=== PATIENT | male | born 1945 | race Caucasian/White ===

== ENCOUNTER → 2017-11-06 | Day surgery (SDC) | payer MEDICARE ==
[2017-11-03 11:05] LABS: BASOPHILS % 0.5 % (0.0-1.0); EOSINOPHILS # (AUTO) 0.2 (0.0-0.4); EOSINOPHILS % 3.1 % (0.0-6.0); HEMATOCRIT 42.3 % (38.2-49.6); HEMOGLOBIN 14.5 g/dL (14.0-18.0); LYMPHOCYTES # (AUTO) 1.4 (1.0-3.2); LYMPHOCYTES % 25.4 % (18.0-39.1); MEAN CORPUSCULAR HEMOGLOBIN 31.3 pg (28-32); MEAN CORPUSCULAR HGB CONC 34.3 g/dL (31-35); MEAN CORPUSCULAR VOLUME 91.2 fL (81-99); MONOCYTES # (AUTO) 0.5 (0.2-0.8); MONOCYTES % 9.5 % (4.4-11.3); NEUTROPHILS # (AUTO) 3.4 (2.1-6.9); NEUTROPHILS % 61.1 % (38.7-80.0); PLATELET COUNT 210 x10e3/uL (140-360); RED BLOOD COUNT 4.64 x10e6/uL (4.3-5.7); RED CELL DISTRIBUTION WIDTH 12.4 % (11.7-14.4)
[~2017-11-06] MED LIST: ASPIRIN EC81 MG PO; ATORVASTATIN CA20 MG PO; BENAZEPRIL HCL20 MG PO; D3 PO; FENTANYL CITRATE/PF 100MCG/2 ML INJ ONE; FIBER PO; GLUCOSAMINE CH1 EAC1 PO; GLUCOSAMINE PO; HYOSCYAMINE SULFATE 0.5 MG/ML AMP ONE; LIDOCAINE HCL 2% LOCAL INJ 5 ML SDV VIAL INJ ONE; LOVASTATIN40 MG PO; MELATONIN10 M1 PO; MIDAZOLAM HCL 2 MG/2 ML VIAL ONE; MULTIVITAMIN PO; MULTIVITAMINS1 EAC7 PO; NIACIN500 M1 PO; PROPOFOL IV EMULSION 10 MG/ML 50 ML VIAL ONE
--- NOTE | 2017-11-06 09:58 | Operative Report ---
DATE OF PROCEDURE: November 06, 2017 REFERRING PHYSICIAN: Dr. Bebo Reyna PROCEDURE PERFORMED: Colonoscopy and polypectomy. INDICATIONS FOR COLONOSCOPY: Colorectal cancer screening and personal history of colon polyps. MEDICATION: Patient was done under MAC. Please see anesthesiologist's note. PROCEDURE: With the patient in the left lateral decubitus position, the flexible fiberoptic Olympus colonoscope was inserted into the rectum with ease and advanced all the way to the ileocolic anastomosis. Anastomosis appeared intact. There was no evidence of recurrence. The scope was then withdrawn slowly. One polyp was snared from the ascending colon. One polyp was snared and one polyp was hot biopsied from the transverse colon. Diverticular disease was noted to be scattered, but more prominent in the distal descending and the sigmoid colon. One polyp was hot biopsied from the sigmoid colon. One polyp was hot biopsied from the rectum. The scope was then retroflexed into the distal rectum and moderate size internal hemorrhoids were noted, none of which was actively bleeding. The scope was then straightened out. It was subsequently withdrawn. Patient tolerated the procedure well. IMPRESSION 1. Ileocolic anastomosis intact. 2. Transverse colon polyps times 2, one snared and one hot biopsied. 3. Diverticulosis. 4. Sigmoid colon polyp, hot biopsied. 5. Rectal polyp, hot biopsied. 6. Internal hemorrhoids, none actively bleeding. PLAN: Follow up histology. Initiate high-fiber and low-fat diet. Initiate high-fiber supplement. Patient will need a followup colonoscopy in 3 years. Job#: [id number] RI cc:BEBO REYNA MD
== END | disposition home or self-care (01) ==
LOC: OR 05:51
PROVIDERS: ATTEND Internal Medicine Gastroenterology
DX: Z12.11 Encounter for screening for malignant neoplasm of colon (principal); D12.3 Benign neoplasm of transverse colon; D12.5 Benign neoplasm of sigmoid colon; K62.1 Rectal polyp; Z98.0 Intestinal bypass and anastomosis status; K57.30 Diverticulosis of large intestine without perforation or abscess without bleeding; K64.8 Other hemorrhoids; I10 Essential (primary) hypertension; E78.5 Hyperlipidemia, unspecified; R00.1 Bradycardia, unspecified; Z01.810 Encounter for preprocedural cardiovascular examination; Z01.812 Encounter for preprocedural laboratory examination; Z79.82 Long term (current) use of aspirin; Z68.28 Body mass index [BMI] 28.0-28.9, adult
CPT/HCPCS: 36415; 45384; 45385; 85025; 88305; 93005; J1980; J2001; J2250; 45378

== ENCOUNTER 2018-03-08 19:08 | Observation (INO) | payer MEDICARE ==
[~2018-03-08] VITALS: Ht 177.8 cm; Wt 103.0 kg
[~2018-03-08 19:08] MED LIST changes: -FENTANYL CITRATE/PF 100MCG/2 ML INJ ONE; -HYOSCYAMINE SULFATE 0.5 MG/ML AMP ONE; -LIDOCAINE HCL 2% LOCAL INJ 5 ML SDV VIAL INJ ONE; -MIDAZOLAM HCL 2 MG/2 ML VIAL ONE; -PROPOFOL IV EMULSION 10 MG/ML 50 ML VIAL ONE
[2018-03-08] MEDS ORDERED: ASPIRIN 81 MG CHEW TAB PO ONE (19:45)
[2018-03-08 19:52] LABS: BASOPHILS # (AUTO) 0.1 (0.0-0.1); BASOPHILS % 0.6 % (0.0-1.0); EOSINOPHILS # (AUTO) 0.2 (0.0-0.4); EOSINOPHILS % 2.6 % (0.0-6.0); HEMATOCRIT 42.6 % (38.2-49.6); HEMOGLOBIN 14.7 g/dL (14.0-18.0); LYMPHOCYTES # (AUTO) 1.6 (1.0-3.2); LYMPHOCYTES % 20.3 % (18.0-39.1); MEAN CORPUSCULAR HEMOGLOBIN 31.5 pg (28-32); MEAN CORPUSCULAR HGB CONC 34.5 g/dL (31-35); MEAN CORPUSCULAR VOLUME 91.2 fL (81-99); MONOCYTES # (AUTO) 0.7 (0.2-0.8); MONOCYTES % 9.2 % (4.4-11.3); NEUTROPHILS # (AUTO) 5.3 (2.1-6.9); PLATELET COUNT 241 x10e3/uL (140-360); RED BLOOD COUNT 4.67 x10e6/uL (4.3-5.7); RED CELL DISTRIBUTION WIDTH 12.4 % (11.7-14.4)
[2018-03-08] MEDS ORDERED: ASPIRIN81 MG PO (19:52)
[2018-03-08 19:57] LABS: CLARITY,URINE CLEAR (CLEAR); COLOR,URINE YELLOW (YELLOW); LEUKOCYTE ESTERASE ,URINE NEGATIVE (NEGATIVE); NITRITE,URINE NEGATIVE (NEGATIVE)
[2018-03-08 19:58] LABS: BILIRUBIN,URINE NEGATIVE (NEGATIVE); KETONES,URINE NEGATIVE (NEGATIVE); PROTEIN,URINE DIPSTICK NEGATIVE (NEGATIVE); URINE UROBILINOGEN 0.2 mg/dL (0.2 - 1)
[2018-03-08] MEDS ORDERED: SODIUM CHLORIDE FLUSH 10 ML SYR INJ PRN ×2 (20:00→21:15)
[2018-03-08] MEDS ORDERED: ONDANSETRON HCL INJ 2 MG/ML VIAL IV PRN ×2 (20:00→21:15)
[2018-03-08 20:01] LABS: EPITHELIAL CELLS,URINE RARE /LPF; RBC,URINE 0-5 /HPF (0-5); WBC,URINE (MAN) 0-5 /HPF (0-5)
[2018-03-08 20:05] LABS: ALANINE AMINOTRANSFERASE 16 IU/L (0-55); ALBUMIN 4.1 g/dL (3.5-5.0); ALBUMIN/GLOBULIN RATIO 1.4 (0.8-2.0); ALKALINE PHOSPHATASE 64 IU/L (40-150); ANION GAP 13.7 mmol/L (8-16); BLOOD UREA NITROGEN 16 mg/dL (7-26); BUN/CREATININE RATIO 17 (6-25); CALCIUM 9.1 mg/dL (8.4-10.2); CARBON DIOXIDE 22 mmol/L (22-29); CHLORIDE 106 mmol/L (98-107); CREATINE KINASE 245 IU/L (30-200); CREATININE, SERUM 0.95 mg/dL (0.72-1.25); EST GLOMERULAR FILTRATION RATE > 60 ML/MIN (60-); GLUCOSE 104 mg/dL (74-118); POTASSIUM 3.7 mmol/L (3.5-5.1); SODIUM 138 mmol/L (136-145)
[2018-03-08] MEDS ORDERED: CEFTRIAXONE SOD 1 GM VIAL IV SCH (20:30)
--- NOTE | 2018-03-08 20:41 | Diagnostic Imaging Report ---
CHEST SINGLE (PORTABLE), 03/08/2018 7:36 PM Technique: CHEST SINGLE (PORTABLE) Comparison: None available. Clinical history: Chest pain Findings: Normal cardiomediastinal silhouette for portable technique. No consolidation or edema. No pleural effusion or pneumothorax. Right clavicle ORIF is noted. Impression: 1. Lines/Tubes: None 2. No acute abnormality. Signed by: Dr Phoebe Malik MD on 03/08/2018 8:38 PM
[2018-03-08] MEDS ORDERED: ENOXAPARIN INJ 80 MG/0.8 ML SYR SC STA (20:42)
[2018-03-08] MEDS ORDERED: CLOPIDOGREL BISULFATE 75 MG TAB PO ONE (20:45)
[2018-03-08] MEDS ORDERED: NITROGLYCERIN 0.4 MG SUBL SL PRN (21:15)
[2018-03-08] MEDS ORDERED: MORPHINE SULFATE 2 MG/ML SYR IV PRN (21:15)
--- OUTSIDE RECORDS SUMMARY | 2018-03-08 21:16 | XMS REPORT ---
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 Allergies, Adverse Reactions, Alerts This patient has no known allergies or adverse reactions. Medications This patient has no known medications. Results Test Description Test Time Test Comments Text Results Atomic Results Result Comments CHEST SINGLE (PORTABLE) 2018-03-08 20:35:00 [place] [id number] Patient Name: MICHAEL STANLEY MR #: [id number] : 1945 Age/Sex: 72/M Req #: [id number] Adm Physician: Ordered by: KELLY BROOKS MD Report #: [id number] Location: ER Room/Bed: Procedure: [id number] DX/CHEST SINGLE (PORTABLE) Exam Date: 03/08/18 Exam Time: 2004 REPORT STATUS: Signed CHEST SINGLE (PORTABLE), 03/08/2018 7:36 PM Technique: CHEST SINGLE (PORTABLE) Comparison: None available. Clinical history: Chest pain Findings: Normal cardiomediastinal silhouette for portable technique. No consolidation or edema. No pleural effusion or pneumothorax. Right clavicle ORIF is noted. Impression: 1. Lines/Tubes: None 2. No acute abnormality. Signed by: Dr Monroe Malik MD on 03/08/2018 8:38 PM Dictated By: MONROE MALIK MD 37 Transcribed By: SANIA on 03/08/182037 COPY TO: KELLY BROOKS MD
[2018-03-08] MEDS: FAMOTIDINE 20 MG/2 ML VIAL IV SCH (21:43)
[2018-03-08 22:49] VITALS: BP 144/76
[2018-03-08 23:10] VITALS: BP 144/76
[2018-03-08 23:14] VITALS: BP 144/76
[2018-03-08] MEDS ORDERED: PNEUMOCOCCAL VACCINE POLYVALENT 23 MCG/0.5 ML VIAL IM ONE (23:30)
[2018-03-08] MEDS ORDERED: INFLUENZA VIRUS VAC SPLIT INJ 0.5 ML SYR IM ONE (23:30)
[2018-03-09] VITALS (16 sets, daily range): BP systolic 119–153; BP diastolic 49–79
[2018-03-09 03:28] LABS: BASOPHILS % 0.4 % (0.0-1.0); EOSINOPHILS # (AUTO) 0.2 (0.0-0.4); EOSINOPHILS % 2.3 % (0.0-6.0); HEMATOCRIT 39.5 % (38.2-49.6); HEMOGLOBIN 13.8 g/dL (14.0-18.0); LYMPHOCYTES # (AUTO) 1.9 (1.0-3.2); LYMPHOCYTES % 27.5 % (18.0-39.1); MEAN CORPUSCULAR HEMOGLOBIN 31.7 pg (28-32); MEAN CORPUSCULAR HGB CONC 34.9 g/dL (31-35); MEAN CORPUSCULAR VOLUME 90.6 fL (81-99); MONOCYTES # (AUTO) 0.5 (0.2-0.8); MONOCYTES % 6.9 % (4.4-11.3); NEUTROPHILS # (AUTO) 4.3 (2.1-6.9); NEUTROPHILS % 62.8 % (38.7-80.0); RED BLOOD COUNT 4.36 x10e6/uL (4.3-5.7); RED CELL DISTRIBUTION WIDTH 12.4 % (11.7-14.4)
[2018-03-09 03:35] LABS: PLATELET COUNT 204 x10e3/uL (140-360)
[2018-03-09 03:48] LABS: ALANINE AMINOTRANSFERASE 15 IU/L (0-55); ALBUMIN 3.6 g/dL (3.5-5.0); ALBUMIN/GLOBULIN RATIO 1.3 (0.8-2.0); ALKALINE PHOSPHATASE 56 IU/L (40-150); ANION GAP 10.8 mmol/L (8-16); BLOOD UREA NITROGEN 13 mg/dL (7-26); BUN/CREATININE RATIO 16 (6-25); CARBON DIOXIDE 24 mmol/L (22-29); CHLORIDE 107 mmol/L (98-107); CHOL/HDL RATIO 3.7 (3.9-4.7); CHOLESTEROL 117 MD/DL (0-199); EST GLOMERULAR FILTRATION RATE > 60 ML/MIN (60-); GLUCOSE 105 mg/dL (74-118); HDL CHOLESTEROL 32 MG/DL (40-60); LDL CHOLESTEROL 68 MG/DL (60-130); POTASSIUM 3.8 mmol/L (3.5-5.1); SODIUM 138 mmol/L (136-145); TRIGLYCERIDES 86 MG/DL (0-149)
[2018-03-09 03:53] LABS: CREATINE KINASE 164 IU/L (30-200)
[2018-03-09] MEDS: FAMOTIDINE 20 MG/2 ML VIAL IV SCH ×2 (08:34→22:03)
[2018-03-09] MEDS ORDERED: ASPIRIN 81 MG ENTERIC COATED PO SCH (09:00)
[2018-03-09] MEDS ORDERED: SODIUM CHLORIDE 0.9% 1000ML 1,000 ML IV SCH (09:10)
[2018-03-09] MEDS ORDERED: IOPAMIDOL 370 MG/ML 200 ML INFUS..BTL INJ ONE ×2 (09:15→10:11)
[2018-03-09] MEDS ORDERED: HEPARIN SOD/SOD CHLORIDE 2,000 ML ONE (09:15)
[2018-03-09] MEDS ORDERED: LIDOCAINE HCL 1% LOCAL INJ 20 ML VIAL ONE (09:15)
[2018-03-09] MEDS ORDERED: SODIUM CHLORIDE 0.9% 1000ML 1,000 ML ONE (09:18)
[2018-03-09] MEDS ORDERED: MIDAZOLAM HCL 2 MG/2 ML VIAL ONE (09:18)
[2018-03-09] MEDS ORDERED: FENTANYL CITRATE/PF 100MCG/2 ML INJ ONE (09:18)
[2018-03-09] MEDS ORDERED: HEPARIN SOD (PORCINE) 1000 UNIT/ML 30ML ONE (10:09)
[2018-03-09] MEDS ORDERED: NITROGLYCERIN/D5W 200 MCG/ML 250 ML ONE (10:09)
[2018-03-09] MEDS ORDERED: SODIUM CHLORIDE 0.9% 50ML 50 ML ONE (10:13)
[2018-03-09] MEDS ORDERED: BIVALRIUDIN 250 MG/VIAL VIAL IV ONE (10:13)
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
[2018-03-09] MEDS ORDERED: CLOPIDOGREL BISULFATE 75 MG TAB ONE (10:30)
[2018-03-09] MEDS ORDERED: MORPHINE SULFATE INJ 4 MG/ML INJ IV PRN (11:15)
[2018-03-09] MEDS ORDERED: ONDANSETRON HCL INJ 2 MG/ML VIAL IV PRN (11:15)
[2018-03-09 11:31] LABS: CREATINE KINASE 150 IU/L (30-200)
[2018-03-09] MEDS: SODIUM CHLORIDE 0.9% 1000ML 1,000 ML IV SCH ×2 (11:47→21:03)
--- NOTE | 2018-03-09 14:19 | Operative Report ---
DATE OF PROCEDURE: March 09, 2018 PROCEDURES PERFORMED 1. Left heart cardiac catheterization with coronary angiography. 2. Left ventriculography. 3. Percutaneous coronary intervention with drug-eluting stent placement to a large ramus intermedius branch. 4. Angio-Seal closure of the right common femoral arteriotomy. INDICATIONS FOR PROCEDURE: A 72-year-old gentleman with history of hypertension, hyperlipidemia who has developed a new-onset escalating substernal chest pain, pressure sensation that began 3 days ago with exertion, now on the day of visit having low level of chest discomfort at rest. Due to high pretest probability and lack of clear-cut alternative diagnosis, we decided to proceed with urgent cardiac catheterization as he was deemed unfit and unstable for a conventional stress test. DESCRIPTION OF PROCEDURE: After risks, benefits, pros, and cons of today's procedure were explained, patient agreed to proceed. The patient was brought to the cardiac catheterization laboratory where the right groin was prepped and draped in usual sterile fashion. A 1% lidocaine solution was used to numb the right groin region. Access to the right femoral artery was obtained, and a 4-Honduran femoral sheath was placed. Selective coronary angiography of the [place] left coronary artery was performed with JL5 and 3DRC diagnostic catheters respectively. Angled pigtail catheter was placed in left ventricle for ventriculography and hemodynamic assessment of ventricular filling pressures. Patient was found to have a 95% ostial large bifurcating ramus intermedius branch stenosis. This supplies predominately his entire anterolateral wall with haziness and clearly the culprit lesion. We decided to proceed with intervention. The 4-Honduran femoral sheath was upsized to a 6-Honduran femoral sheath. We took a 6-Honduran XB 3.5 guiding catheter and selected the left main coronary ostia. Utilizing a 180 cm, 0.014 Runthrough wire, we crossed into the distal ramus intermedius vessel. We then took a Resolute Yonathan 2.25 x 15 mm drug-eluting stent and under very great care and multiple angulations, we precisely placed the stent at the ostium of the ramus intermedius branch without any impingement into the LAD or circumflex or left main coronary artery. The stent was deployed up to 12 atmospheres of pressure, which resulted in improvement in flow from VIJAYA-2 to VIJAYA-3 and 0% residual stenosis. We decided to do one more post-dilatation at 14 atmospheres of pressure for 30 seconds. Final angiography revealed 0% residual stenosis, VIJAYA-3 flow, and no complications. At the conclusion of the case, femoral angiogram was performed revealing femoral artery stick and a 6-Honduran Angio-Seal VIP closure device was successfully deployed achieving hemostasis. COMPLICATIONS: None. ESTIMATED BLOOD LOSS: Minimal. FINDINGS 1. The left main is angiographically normal and gives rise to LAD, ramus intermedius, and circumflex branch. 2. The LAD and its branches with mild luminal irregularities. 3. The ramus intermedius is a large bifurcating vessel with 95% ostial hazy stenosis. This is the clear-cut culprit artery. There is a large branch coming out from this vessel and is with bifurcation, [place] 1, 0, 0 lesion. 4. The left circumflex artery has a 40% mid stenosis and basically terminates into a mid branch of diffuse disease. 5. The RCA is dominant and gives rise to a right PDA and right PLV branch with 30% mid RCA stenosis. 6. The left ventricular ejection fraction is 55% with end-diastolic pressure of 16 mmHg. There is no significant LV to aortic pullback gradient. INTERVENTION SUMMARY: Successful treatment of the 95% thrombotic ostial ramus intermedius vessel branch with implantation of a Resolute Rewey 2.25 x 15 mm drug-eluting stent up to atmospheres of pressure, resulting in 0% residual stenosis, improvement in flow from VIJAYA-2 to VIJAYA-3, and no complications. PLAN/RECOMMENDATIONS 1. Aspirin and Plavix therapy. 2. Statin therapy. 3. Risk factor modification and medical therapy. 4. Four-hour bed rest post PCI today. 5. Overnight observation. Job#: [id number] ARTIS
[2018-03-09] MEDS: METOPROLOL TARTRATE 25 MG TAB PO SCH (17:05)
[2018-03-09] MEDS ORDERED: ATORVASTATIN 20 MG TAB PO SCH (21:00)
[2018-03-09] MEDS ORDERED: NON-FORMULARY MEDICATION (Benazepril Hcl 20 MG) PO SCH (21:00)
[2018-03-09] MEDS ORDERED: LISINOPRIL 20 MG TAB PO SCH (21:00)
[2018-03-10 00:12] VITALS: BP 132/71
[2018-03-10 01:38] VITALS: BP 132/71
[2018-03-10 05:03] VITALS: BP 114/68
[2018-03-10 05:50] LABS: BASOPHILS % 0.6 % (0.0-1.0); EOSINOPHILS # (AUTO) 0.2 (0.0-0.4); EOSINOPHILS % 2.8 % (0.0-6.0); HEMATOCRIT 40.6 % (38.2-49.6); HEMOGLOBIN 13.7 g/dL (14.0-18.0); LYMPHOCYTES # (AUTO) 1.4 (1.0-3.2); LYMPHOCYTES % 21.3 % (18.0-39.1); MEAN CORPUSCULAR HEMOGLOBIN 31.4 pg (28-32); MEAN CORPUSCULAR HGB CONC 33.7 g/dL (31-35); MEAN CORPUSCULAR VOLUME 92.9 fL (81-99); MONOCYTES # (AUTO) 0.6 (0.2-0.8); MONOCYTES % 9.5 % (4.4-11.3); NEUTROPHILS # (AUTO) 4.4 (2.1-6.9); NEUTROPHILS % 65.5 % (38.7-80.0); PLATELET COUNT 205 x10e3/uL (140-360); RED BLOOD COUNT 4.37 x10e6/uL (4.3-5.7); RED CELL DISTRIBUTION WIDTH 12.3 % (11.7-14.4)
[2018-03-10 06:06] LABS: ALANINE AMINOTRANSFERASE 13 IU/L (0-55); ALBUMIN 3.6 g/dL (3.5-5.0); ALBUMIN/GLOBULIN RATIO 1.4 (0.8-2.0); ALKALINE PHOSPHATASE 54 IU/L (40-150); ANION GAP 12.6 mmol/L (8-16); BLOOD UREA NITROGEN 11 mg/dL (7-26); BUN/CREATININE RATIO 13 (6-25); CALCIUM 8.7 mg/dL (8.4-10.2); CARBON DIOXIDE 25 mmol/L (22-29); CHLORIDE 106 mmol/L (98-107); CREATININE, SERUM 0.88 mg/dL (0.72-1.25); EST GLOMERULAR FILTRATION RATE > 60 ML/MIN (60-); GLUCOSE 98 mg/dL (74-118); POTASSIUM 4.6 mmol/L (3.5-5.1); SODIUM 139 mmol/L (136-145)
[2018-03-10 07:00] VITALS: BP 114/68
[2018-03-10] MEDS: SODIUM CHLORIDE 0.9% 1000ML 1,000 ML IV SCH (07:03)
[2018-03-10 08:27] VITALS: BP 121/71
[2018-03-10] MEDS ORDERED: INFLUENZA VIRUS VAC SPLIT INJ 0.5 ML SYR IM ONE (09:00)
[2018-03-10] MEDS ORDERED: CLOPIDOGREL BISULFATE 75 MG TAB PO SCH (09:00)
[2018-03-10] MEDS ORDERED: ASPIRIN 325 MG TAB PO SCH (09:00)
[2018-03-10] MEDS: FAMOTIDINE 20 MG/2 ML VIAL IV SCH (09:48)
[2018-03-10] MEDS: METOPROLOL TARTRATE 25 MG TAB PO SCH (09:48)
[2018-03-10] MEDS ORDERED: PLAVIX75 MG PO (11:08)
[2018-03-10] MEDS ORDERED: METOPROLOL TART25 MG PO (11:09)
[2018-03-10 11:57] VITALS: BP 130/70
--- NOTE | 2018-04-08 01:47 | Discharge Summary ---
CHIEF COMPLAINT: Chest pain. FINAL DIAGNOSES 1. Chest pain. 2. Hypertension. 3. Hyperlipidemia. 4. Coronary artery disease. PROCEDURES: Cardiac cath with intervention per Dr. Brown. DISPOSITION: Home. A 72-year-old male, known history of hypertension, hyperlipidemia, brought to the ER with a several-hour history of right chest pain described as pressure gets worse with exertion. Has had shortness of breath. No cough. No fever or chills. Further review and evaluation was conducted in the emergency room. Admitted to facility for evaluation of the chest pain, rule out ischemia, essential systolic hypertension, hyperlipidemia. Will be requesting a cardiology follow, request cardiac enzymes. From the ER, patient was in IMCU, resting comfortably, was in no acute distress. Was receiving IV fluids. Was receiving nitroglycerin 0.4 mg q.5 minutes x3. Daily medications were continuing as well, was receiving morphine sulfate for pain control. Laboratory studies revealing stable chemistries. Kidney functions stable. Glucose 98. CBC stable. Patient was taken to the supervisor labor gang by Dr. Brown. The patient underwent catheterization. Found to have an involved ramus. PCI was conducted at this vessel. Patient tolerated the procedure well. Post procedure, patient was cleared for discharge and was released home on 03/10/2018 in stable condition. EKGs are showing normal sinus rhythm. Cannot rule out anterior infarct age undetermined. Following up with echocardiogram revealing ejection fraction of 50% to 60%. No evidence of pericardial effusion. In the supervisor labor gang, patient was noted to have a 95% occlusion in the ramus and the patient underwent placement of Resolute Yonathan 2.25-mm x 15-mm stent. Reduced the restriction from 95 to 0. Patient will be on the medications post procedure i.e. aspirin, Plavix, and statins. Patient was able to be home once recovered from the procedure. With discharge, patient will be on a cardiac diet. No equipment or supplies necessary. Drains or Alejandro as needed. Activity level as directed by Dr. Brown. Was given a flu vaccine before being discharged. Was given a prescription for 1. Plavix 75 mg 1 tablet p.o. daily. 2. Lipitor 20 mg 1 tablet p.o. daily. 3. Metoprolol 12.5 mg 1 tablet p.o. b.i.d. 4. Lisinopril 20 mg 1 tablet p.o. daily. 5. Will also be on aspirin 81 mg daily. 6. Benazepril 20 mg at bedtime. 7. Glucosamine chondroitin 1 tablet at bedtime. 8. Melatonin 2 mg nightly for insomnia. 9. Multivitamin 1 tablet at bedtime. Will be following back up with Dr. Brown in 1 to 2 weeks. Returning to PCP within 7 to 10 days. Patient will be contacting cardiology sooner if any chest pain or shortness of breath were to develop. Dictated By: FADIA Puente Job#: [id number] CQ
== END 2018-03-10 12:45 | disposition home or self-care (01) ==
LOC: ER 19:08 → ERHOLD 21:13 → IMCU 22:38
DX: I25.110 Atherosclerotic heart disease of native coronary artery with unstable angina pectoris (principal); I10 Essential (primary) hypertension; E78.5 Hyperlipidemia, unspecified; E78.00 Pure hypercholesterolemia, unspecified; Z87.891 Personal history of nicotine dependence; Z82.49 Family history of ischemic heart disease and other diseases of the circulatory system; Z79.82 Long term (current) use of aspirin; Z79.02 Long term (current) use of antithrombotics/antiplatelets
CPT/HCPCS: 93458; C9600; 36415; 71045; 80053; 80061; 81001; 82550; 82553; 84484; 85025; 92928; 93005; 93306; 99284; C1766; C1874; G0378; J0583; J1644; J1650; J2001; J2250; J7030; Q9967

== ENCOUNTER → 2021-02-14 | Day surgery (SDC) | payer MEDICARE ==
[2021-02-12 11:38] LABS: BASOPHILS % 0.5 % (0.0-1.0); EOSINOPHILS # (AUTO) 0.1 (0.0-0.4); EOSINOPHILS % 1.7 % (0.0-6.0); HEMATOCRIT 44.6 % (38.2-49.6); HEMOGLOBIN 14.8 g/dL (14.0-18.0); LYMPHOCYTES # (AUTO) 1.1 (1.0-3.2); LYMPHOCYTES % 18.7 % (18.0-39.1); MEAN CORPUSCULAR HEMOGLOBIN 30.9 pg (28-32); MEAN CORPUSCULAR HGB CONC 33.2 g/dL (31-35); MEAN CORPUSCULAR VOLUME 93.1 fL (81-99); MONOCYTES # (AUTO) 0.6 (0.2-0.8); MONOCYTES % 10.4 % (4.4-11.3); NEUTROPHILS % 68.5 % (38.7-80.0); PLATELET COUNT 224 x10e3/uL (140-360); RED BLOOD COUNT 4.79 x10e6/uL (4.3-5.7); RED CELL DISTRIBUTION WIDTH 12.3 % (11.7-14.4)
[~2021-02-14] MED LIST changes: +ASPIRIN81 MG PO; +GLUCOSAMINE &1 EACH PO; +METOPROLOL TART25 MG PO; +PLAVIX75 MG PO
[2021-02-14 13:00] VITALS: BP 116/75
== END | disposition home or self-care (01) ==
LOC: OR 09:33
PROVIDERS: ATTEND Internal Medicine Gastroenterology
DX: Z09 Encounter for follow-up examination after completed treatment for conditions other than malignant neoplasm (principal); D12.2 Benign neoplasm of ascending colon; D12.4 Benign neoplasm of descending colon; Z98.0 Intestinal bypass and anastomosis status; K57.30 Diverticulosis of large intestine without perforation or abscess without bleeding; K64.8 Other hemorrhoids; I25.10 Atherosclerotic heart disease of native coronary artery without angina pectoris; E78.5 Hyperlipidemia, unspecified; I10 Essential (primary) hypertension; Z01.810 Encounter for preprocedural cardiovascular examination; Z01.812 Encounter for preprocedural laboratory examination; Z20.822 Contact with and (suspected) exposure to COVID-19; Z79.02 Long term (current) use of antithrombotics/antiplatelets; Z79.82 Long term (current) use of aspirin; Z68.27 Body mass index [BMI] 27.0-27.9, adult; Z95.5 Presence of coronary angioplasty implant and graft; Z87.891 Personal history of nicotine dependence
CPT/HCPCS: 36415; 45384; 45385; 85025; 88305; 93005; U0002

== ENCOUNTER 2022-03-01 13:43 | Emergency (ER) | payer MEDICARE, OTHER ==
[~2022-03-01] VITALS: Ht 177.8 cm; Wt 103.0 kg
[2022-03-01] MEDS ORDERED: TETANUS/DIPHTHERIA TOX ADULT 0.5 ML SYR IM ONE (15:00)
[2022-03-01 16:54] VITALS: BP 129/82
== END 2022-03-01 16:56 | disposition home or self-care (01) ==
LOC: ER 14:01
DX: S40.012A Contusion of left shoulder, initial encounter (principal); S00.83XA Contusion of other part of head, initial encounter; S80.02XA Contusion of left knee, initial encounter; V19.3XXA Pedal cyclist (driver) (passenger) injured in unspecified nontraffic accident, initial encounter; Y93.55 Activity, bike riding; Y92.89 Other specified places as the place of occurrence of the external cause; I10 Essential (primary) hypertension; E78.5 Hyperlipidemia, unspecified; Z98.0 Intestinal bypass and anastomosis status
CPT/HCPCS: 70450; 90471; 90714; 99283

== ENCOUNTER → 2024-02-06 | Day surgery (SDC) | payer MEDICARE ==
[2024-02-02 11:26] LABS: BASOPHILS % 0.6 % (0.0-1.0); EOSINOPHILS # (AUTO) 0.2 (0.0-0.4); EOSINOPHILS % 2.9 % (0.0-6.0); HEMATOCRIT 42.3 % (38.2-49.6); HEMOGLOBIN 13.8 g/dL (14.0-18.0); LYMPHOCYTES # (AUTO) 1.2 (1.0-3.2); LYMPHOCYTES % 18.7 % (18.0-39.1); MEAN CORPUSCULAR HEMOGLOBIN 31.8 pg (28-32); MEAN CORPUSCULAR HGB CONC 32.6 g/dL (31-35); MEAN CORPUSCULAR VOLUME 97.5 fL (81-99); MONOCYTES # (AUTO) 0.7 (0.2-0.8); MONOCYTES % 9.9 % (4.4-11.3); NEUTROPHILS # (AUTO) 4.4 (2.1-6.9); NEUTROPHILS % 67.6 % (38.7-80.0); PLATELET COUNT 304 x10e3/uL (140-360); RED BLOOD COUNT 4.34 x10e6/uL (4.3-5.7); RED CELL DISTRIBUTION WIDTH 12.8 % (11.7-14.4); WHITE BLOOD COUNT 6.57 x10e3/uL (4.8-10.8)
[~2024-02-06] MED LIST changes: +HYOSCYAMINE SULFATE 0.5 MG/ML INJ ONE; +LEVOTHYROXINE50 MCG PO; +LIDOCAINE HCL 2% LOCAL INJ 5 ML SDV VIAL INJ ONE; +MELATONIN3 MG PO; +MULTI-VITAMIN1 EACH PO; +PROPOFOL IV EMULSION 50 ML IV ONE
[2024-02-06] MEDS: LACTATED RINGER'S 1,000 ML ONE (07:00)
[2024-02-06 09:47] VITALS: TEMP 97.8
[2024-02-06 10:15] VITALS: BP 122/79; PULSE 95; RESP 16; O2SAT 98
== END | disposition home or self-care (01) ==
LOC: OR 06:27
PROVIDERS: ATTEND Internal Medicine Gastroenterology
DX: Z09 Encounter for follow-up examination after completed treatment for conditions other than malignant neoplasm (principal); D12.2 Benign neoplasm of ascending colon; K57.30 Diverticulosis of large intestine without perforation or abscess without bleeding; Z98.0 Intestinal bypass and anastomosis status; K64.8 Other hemorrhoids; E78.5 Hyperlipidemia, unspecified; I25.10 Atherosclerotic heart disease of native coronary artery without angina pectoris; E03.9 Hypothyroidism, unspecified; R00.1 Bradycardia, unspecified; Z01.812 Encounter for preprocedural laboratory examination; Z79.82 Long term (current) use of aspirin; Z79.899 Other long term (current) drug therapy; Z95.5 Presence of coronary angioplasty implant and graft
CPT/HCPCS: 36415; 45385; 85025; 88305; J1980; J2001; J2704; J7121; 45378